=== PATIENT | male | born 1945 | race African-American/Black ===

== ENCOUNTER 2016-12-24 05:52 | Inpatient (IN) ==
[2016-12-17 11:03] LABS: Basophils % 0.3 % (0.0-0.8); Eosinophils # 0.2 10*3/uL (0.0-0.87); Eosinophils % 2.3 % (0.00-10.9); Hematocrit 37.6 VOL% (42.0-52.0); Hemoglobin 12.2 GM/DL (14.0-18.0); Immature Granulocytes % 0.1 %; Immature Granulocytes Absolute 0.01 #; Lymphocytes # 1.5 10*3/uL (1.4-4.0); Lymphocytes % 20.8 % (21.2-54.2); Mean Corpuscular HGB Conc 32.4 GM/DL (32-36); Mean Corpuscular Hemoglobin 23 PG (27-34); Mean Corpuscular Volume 70.5 FL (87-102); Mean Platelet Volume 9.8 FL (9.6-12.0); Monocytes # 0.6 10*3/uL (0.11-0.8); Monocytes % 8.8 % (1.7-12.7); Neutrophils # 4.8 10*3/uL (1.4-7.4); Neutrophils % 67.7 % (38.7-73.9); Platelet Count 233 T/CUMM (130-400); Red Blood Count 5.33 MC/CUMM (3.8-5.5); White Blood Count 7.1 T/CUMM (4-12)
--- NOTE | 2016-12-17 11:21 | EKG Report ---
Stationary ECG Study [facility] Test Date: 12/17/2016 11:23:10 AM Pat Name: ZOHAIB KENNEDY Department: Room: Gender: M Fall Internship: ANAHY MERCHANT : 1945 Requested by: Jonathan Merchant Order Number: [id number] Reading MD: ALEAH CANTU Intervals [place] Rate: 87 P: 73 CT: 184 QRS: 30 QRSD: 91 T: 42 QT: 365 QTc: 410 Interpretive Statements SINUS RHYTHM Electronically Signed On 12-17-16 11:42:36 CDT by ALEAH CANTU [email or web address]
[2016-12-17 11:34] LABS: Alanine Aminotransferase 32 U/L (16-61); Albumin 3.8 G/DL (3.4-5.0); Alkaline Phosphatase 70 U/L (45-117); Aspartate Amino Transferase 18 U/L (0-37); Bilirubin,Total < 0.39 MG/DL (0.2-1.0); Blood Urea Nitrogen 16 MG/DL (7-18); Calcium 9.9 MG/DL (8.5-10.1); Glucose 157 MG/DL (74-106); Osmolality,Calculated 278.7 MOS/KG (273-304); Potassium 4.4 MMOL/L (3.5-5.1); Sodium 138 MMOL/L (136-145); Total Protein 7.8 G/DL (6.4-8.3)
[2016-12-24] MEDS ORDERED: cefOXitin 1,000 MG in SODIUM CHLORIDE 0.9% 100 ML IV ONE (06:00)
[2016-12-24] MEDS ORDERED: ALVIMOPAN 12 MG CAPSULE ONE (06:20)
[2016-12-24] MEDS ORDERED: SODIUM CHLORIDE 0.9% 100 ML IV ONE (06:21)
[2016-12-24] MEDS: LACTATED RINGERS 1,000 ML IV SCH ×4 (06:23→22:44)
[2016-12-24] MEDS ORDERED: LIDOCAINE 1%/EPI INJ 20 ML VIAL ONE (06:29)
[2016-12-24] MEDS ORDERED: BUPIVACAINE MPF 0.25% /EPI 30 ML VIAL ONE (06:29)
[2016-12-24] MEDS ORDERED: ALVIMOPAN 12 MG CAPSULE PO ONE (06:42)
--- NOTE | 2016-12-24 06:57 | History and Physical Update ---
History and Physical Update - History and Physical H&P was reviewed, the patient examined and there: are no changes in the patients condition since last H&P was completed.
[2016-12-24] MEDS ORDERED: PROPOFOL 200 MG/20 ML VIAL IV ONE (07:08)
[2016-12-24] MEDS ORDERED: ROCURONIUM 100 MG/10 ML VIAL IV ONE (07:08)
[2016-12-24] MEDS ORDERED: LIDOCAINE 2% 5 ML VIAL ONE (07:08)
[2016-12-24] MEDS ORDERED: ONDANSETRON 4 MG/2 ML VIAL ONE (07:08)
[2016-12-24] MEDS ORDERED: NEOSTIGMINE 10 MG/10 ML VIAL ONE (07:08)
[2016-12-24] MEDS ORDERED: PHENYLEPHRINE 1 MG/10 ML SYRINGE IV ONE (07:08)
[2016-12-24] MEDS ORDERED: GLYCOPYRROLATE 0.4 MG/2 ML VIAL ONE (07:08)
[2016-12-24] MEDS ORDERED: PHENYLEPHRINE DRIP 20 MG/250 ML PREMIX IV ONE (07:40)
[2016-12-24] MEDS ORDERED: ONDANSETRON 4 MG/2 ML VIAL IV PRN ×2 (10:20→10:57)
[2016-12-24] MEDS ORDERED: ACETAMINOPHEN 325 MG TABLET PO PRN (10:20)
[2016-12-24 10:23] LABS: Apearance,Urine CLEAR (Clear); Bilirubin,Urine Negative (Negative); Blood, Urine Small mg/dL (Negative); Glucose,Urine (UA) >=500 mg/dL (Negative); Ketones,Urine Negative (Negative); Nitrite,Urine Negative (Negative); Protein,Urine Negative; RBC,Urine 3 /HPF (0-4); Urine Color Straw (Yellow); Urine Specific Gravity 1.007 (1.001-1.035); Urine Urobilinogen < 2.0 EU/DL (0.2-1.0); WBC,Urine <1 /HPF (0-6)
--- NOTE | 2016-12-24 10:31 | Operative Note ---
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 After general anesthesia was induced the abdomen was prepped and draped in usual sterile fashion. After procedural pause incision was made just below the umbilicus and dissection carried down through skin and soft tissue. The fascia grasped with Orlando's and elevated. Fascial incision was made in the abdominal cavity was entered bluntly. Finger sweep revealed no adhesions. Parr trocar placed under direct visualization. Pneumoperitoneum achieved. The camera inserted and bowel mesentery inspected found to be free of any violation. Next the patient was placed in slight Trendelenburg position and rotated to the left. 12 mm trocar placed in the right lower quadrant, 8 mm trocar placed left of the umbilicus and a 5 mm trocar placed in the left upper quadrant, all under visualization. The robotic arms were docked and I took control to consult. Small bowel was swept to the left lower quadrant exposing the right colon. The cecum was elevated and there was tenting at the right colic vessels. The mesentery in this region was dissected in the right colic artery was identified and dissected free from the surrounding tissue. It was stapled with a vascular load robotic stapler. Dissection was carried along the mesentery at the base and the duodenum was identified and preserved. No heat source was ever used near the duodenum. Division of the mesentery was continued to the transverse colon leaving the middle colic arteries intact. Transverse colon was then divided with the ROSSY stapling device with a blue load. Mesentery dissection was continued inferiorly down to the ileum at approximately 5-10 cm from the ileocecal junction. The ileum was divided i using a blue stapler. The remaining attachments laterally were divided and the specimen was completely freed and placed in the right upper quadrant. There was excellent hemostasis. Right ureter was unharmed. Next the ileum was brought up alongside the transverse colon and an enterotomy and colotomy were made. A side to side functional end-to-end anastomosis was constructed using the robotic stapler with a blue load. The defect was closed with a running 2-0 Prolene suture. Tisseel was applied to the anastomosis and closure. The anastomosis appeared patent tension-free and healthy and viable. Omentum was placed over the anastomosis. The robotic arms were undocked. The specimen was placed in an Endo Catch sac and delivered through the Parr trocar site. The remaining trochars were removed. Fascia at the Parr trocar site closed using #1 Prolene running suture. Wounds were thoroughly irrigated and suctioned. Incision closed with cynthia. Sterile dressings applied. Patient was extubated and taken recovery room in stable condition. All lap and needle counts correct at the end of the case. Anesthesia: SANA Surgeon / Physician: Jonathan Merchant Android Platform Developer: Mikael Abdul Estimated blood loss: other (Less than 25 cc) Specimens: other (Right colon) Condition: stable Disposition: PACU Results - Labs CBC & BMP: 12/17/16 10:56 12/17/16 10:56 Discharge Plan - Discharge Medications No Action Atorvastatin [Lipitor] 40 mg PO DAILY Glimepiride 4 mg PO BEDTIME Canagliflozin [Invokana] 100 mg PO DAILY Losartan Potassium 50 mg PO DAILY Multivitamin [Multivitamins] 1 each PO DAILY amLODIPine [Norvasc] 10 mg PO BEDTIME Sitagliptin Phos/Metformin HCl [Janumet 50-1,000 mg Tablet] 50 mg PO BID PARoxetine [Paxil] 10 mg PO DAILY Penicillin Vk Tab 500 mg PO DIRECTED - Follow Up or Referral - Forms/Instructions
[2016-12-24] MEDS ORDERED: HYDROmorphone 2 MG/1 ML VIAL IV PRN (10:57)
[2016-12-24] MEDS ORDERED: DESFLURANE 1 UNIT/15 MINUTE INH ONE (14:05)
[2016-12-24] MEDS ORDERED: ePHEDrine 50 MG/ML AMP ONE (14:06)
[2016-12-24] MEDS ORDERED: LACTATED RINGERS 1,000 ML IV ONE (14:06)
[2016-12-24] MEDS ORDERED: ACETAMINOPHEN 1,000 MG/100 ML VIAL IV ONE (14:06)
[2016-12-24] MEDS ORDERED: MIDAZOLAM 2 MG/2 ML VIAL ONE (14:06)
--- NOTE | 2016-12-24 14:26 | Operative Note ---
Date of procedure: 12/24/16 Procedure: This is a assistant administrator note for the robotic assisted laparoscopic right colectomy performed by Dr. Villa. I served as a bedside operating room assistant for the procedure. The right colon was removed with a high ligation of the ileocolic pedicle and medial to lateral dissection. The anastomosis was performed with a [id number] stapled technique and appeared patent and well perfused. There is adequate gross margin after the specimen was removed. Surgeon / Physician: Mikael Abdul Results - Labs CBC & BMP: 12/17/16 10:56 12/17/16 10:56 Discharge Plan - Discharge Medications No Action Atorvastatin [Lipitor] 40 mg PO DAILY Glimepiride 4 mg PO BEDTIME Canagliflozin [Invokana] 100 mg PO DAILY Losartan Potassium 50 mg PO DAILY Multivitamin [Multivitamins] 1 each PO DAILY amLODIPine [Norvasc] 10 mg PO BEDTIME Sitagliptin Phos/Metformin HCl [Janumet 50-1,000 mg Tablet] 50 mg PO BID PARoxetine [Paxil] 10 mg PO DAILY - Follow Up or Referral - Forms/Instructions
--- NOTE | 2016-12-24 15:57 | Anesthesia Post-Op ---
Anesthesia Post OP - Post Ansesthetic Evaluation Patient seen in post op: Yes Resp: within normal limits CV: within normal limits Mental: within normal limits Temp: within normal limits [id number]: within normal limits Nausea and Vomiting: within normal limits Pain: within normal limits
[2016-12-24] MEDS: MORPHINE 2 MG/1 ML SYRINGE IV PRN ×2 (16:06→21:52)
[2016-12-25] MEDS: LACTATED RINGERS 1,000 ML IV SCH ×3 (01:29→12:35)
[2016-12-25 06:35] LABS: Basophils % 0.2 % (0.0-0.8); Eosinophils % 0.2 % (0.00-10.9); Hematocrit 33.9 VOL% (42.0-52.0); Hemoglobin 10.9 GM/DL (14.0-18.0); Immature Granulocytes % 0.4 %; Immature Granulocytes Absolute 0.05 #; Lymphocytes # 1.4 10*3/uL (1.4-4.0); Lymphocytes % 11.2 % (21.2-54.2); Mean Corpuscular HGB Conc 32.2 GM/DL (32-36); Mean Corpuscular Hemoglobin 23 PG (27-34); Mean Corpuscular Volume 69.9 FL (87-102); Mean Platelet Volume 10.3 FL (9.6-12.0); Monocytes # 1.5 10*3/uL (0.11-0.8); Monocytes % 12.2 % (1.7-12.7); Neutrophils # 9.6 10*3/uL (1.4-7.4); Neutrophils % 75.8 % (38.7-73.9); Platelet Count 219 T/CUMM (130-400); Red Blood Count 4.85 MC/CUMM (3.8-5.5); Red Cell Distribution Width 16.7 % (9.3-17.3); White Blood Count 12.7 T/CUMM (4-12)
[2016-12-25 07:06] LABS: Calcium 9.6 MG/DL (8.5-10.1); Osmolality,Calculated 277.5 MOS/KG (273-304); Potassium 4.3 MMOL/L (3.5-5.1)
[2016-12-25] MEDS: PANTOPRAZOLE 40 MG TABLET PO SCH (09:17)
--- NOTE | 2016-12-25 11:06 | Event Note ---
General Surgery Progress Note Chief complaint This patient is a 71-year-old man who underwent robotic assisted laparoscopic right colectomy by Dr. Villa for colon cancer on 12/24/2016 Interval history Patient feels well today. Pain is well controlled. No nausea or vomiting. He had a bowel movement yesterday and is passing gas. He feels thirsty but not necessarily hungry. He still has a Hoffman catheter and has not gotten out of bed yet. Physical exam The patient is afebrile with normal vital signs Chest is clear Heart is regular Abdomen is soft and appropriately tender with clean dressings. Nondistended. Normal bowel sounds. Labs Reviewed, stable Imaging None new Assessment and plan Begin diet as tolerated Discontinue Hoffman catheter Start DVT chemoprophylaxis with Lovenox Discontinue antibiotics Change to maintenance fluids Likely discharge home tomorrow Repeat labs tomorrow
[2016-12-25] MEDS: DEXT 5% NACL 0.45% KCL 20 MEQ 20 MEQ/1,000 ML BAG IV SCH ×3 (12:11→21:34)
[2016-12-25] MEDS: ENOXAPARIN 40 MG/0.4 ML SYRINGE SUBCUT SCH (12:11)
[2016-12-26 05:42] LABS: Basophils % 0.3 % (0.0-0.8); Eosinophils # 0.1 10*3/uL (0.0-0.87); Eosinophils % 1.4 % (0.00-10.9); Hematocrit 35.9 VOL% (42.0-52.0); Hemoglobin 11.3 GM/DL (14.0-18.0); Immature Granulocytes % 0.4 %; Immature Granulocytes Absolute 0.04 #; Lymphocytes # 1.2 10*3/uL (1.4-4.0); Lymphocytes % 12.2 % (21.2-54.2); Mean Corpuscular HGB Conc 31.5 GM/DL (32-36); Mean Corpuscular Hemoglobin 22 PG (27-34); Mean Corpuscular Volume 70.4 FL (87-102); Mean Platelet Volume 10.7 FL (9.6-12.0); Monocytes # 1.3 10*3/uL (0.11-0.8); Monocytes % 12.8 % (1.7-12.7); Neutrophils # 7.1 10*3/uL (1.4-7.4); Neutrophils % 72.9 % (38.7-73.9); Platelet Count 205 T/CUMM (130-400); Red Cell Distribution Width 16.8 % (9.3-17.3); White Blood Count 9.8 T/CUMM (4-12)
[2016-12-26] MEDS: DEXT 5% NACL 0.45% KCL 20 MEQ 20 MEQ/1,000 ML BAG IV SCH ×2 (05:47→10:19)
[2016-12-26 06:11] LABS: Calcium 8.9 MG/DL (8.5-10.1); Magnesium 1.6 MG/DL (1.8-2.4); Osmolality,Calculated 277.7 MOS/KG (273-304); Potassium 4.2 MMOL/L (3.5-5.1)
[2016-12-26] MEDS ORDERED: MAGNESIUM SULF RIDER 2 GM in PREMIX 1 EACH IV ONE (07:06)
--- NOTE | 2016-12-26 09:15 | Discharge Summary ---
Hospital Course - Hospital Course Hospital Course: This patient was admitted following robotic assisted laparoscopic right colectomy for cecal cancer. He did very well postoperatively and was having bowel function immediately postoperatively and tolerated his diet. His pain is well controlled. He had some low-grade temps at nighttime likely due to atelectasis but his abdominal pain was resolved by the time of discharge he was having no nausea or vomiting tolerating a regular diet and having bowel movements. He was afebrile overnight and on the day of his discharge and had no evidence of complications and was discharged home with follow-up with Dr. Merchant in about 1 week for clip removal. Discharge Plan - Discharge Data Disposition: Disch To Home/Self Care Condition at Discharge: Stable Discharge Diet: advance to your usual diet Activity: no lifting Hygiene: may shower Weight Bearing at Discharge: weight bear as tolerated Driving: other (Do not drive or operate heavy machinery for at least 24 hours and after you are off of narcotic pain medications.) Contact your physician if you experience:: fever over 101, Difficulty voiding, Redness or swelling, Nausea/Vomiting, Shortness of breath, Bleeding, pain uncontrolled by pain medications Wound / Dressing Care Instructions: It is okay to shower. Do not submerge your incisions underwater. - Discharge Medications New HYDROcodone/ACETAMIN 7.5-325 [[place] 7.5-325] 1 tablet PO Q4H PRN #30 tablet PRN Reason: Pain Moderate (4-7) Continue Atorvastatin [Lipitor] 40 mg PO DAILY Glimepiride 4 mg PO BEDTIME Canagliflozin [Invokana] 100 mg PO DAILY Losartan Potassium 50 mg PO DAILY Multivitamin [Multivitamins] 1 each PO DAILY amLODIPine [Norvasc] 10 mg PO BEDTIME Sitagliptin Phos/Metformin HCl [Janumet 50-1,000 mg Tablet] 50 mg PO BID PARoxetine [Paxil] 10 mg PO DAILY - Follow Up or Referral Follow Up: Jonathan Merchant MD [Physician] - 1 Week - Forms/Instructions Exam - Constitutional Vitals: Period Temp Pulse Resp BP Sys/Arndt Pulse Ox Last 24 Hr 97.1 F-101.0 F 86-97 18-20 137-164/66-80 90-94 General appearance: no acute distress, over weight - Head Head exam: Present: normal inspection, normocephalic - Eye Eye exam: Present: EOMI Pupils: Present: PINO - ENT ENT exam: Present: normal exam - Neck Neck exam: Present: normal inspection - Respiratory Respiratory exam: Present: clear to auscultation bilaterally. Absent: accessory muscle use, chest wall tenderness - Cardiovascular Cardiovascular exam: Present: regular rate and rhythm. Absent: systolic murmur , tachycardia - GI/Abdominal GI/Abdominal exam: Present: normal bowel sounds, tenderness (Appropriate postoperative tenderness), soft, other (Incisions are clean and dry with cynthia intact and no drainage or infection). Absent: rebound - Extremities Exam Extremities exam: Present: normal inspection, normal capillary refill - Back Exam Back exam: Present: normal inspection - Neurological Exam Neurological exam: Present: alert, oriented X3 - Psychiatric Psychiatric exam: Present: normal affect, normal mood - Skin Skin exam: Present: normal color, warm Discharge Results Labs on day of discharge: Labs from last 24 hours 12/26/16 12/26/16 04:39 04:39 WBC 9.8 RBC 5.10 Hgb 11.3 L Hct 35.9 L MCV 70.4 L MCH 22 L MCHC 31.5 L RDW 16.8 Plt Count 205 MPV 10.7 Neut % (Auto) 72.9 Lymph % (Auto) 12.2 L Riley % (Auto) 12.8 H Eos % (Auto) 1.4 Baso % (Auto) 0.3 Neut # (Auto) 7.1 Lymph # (Auto) 1.2 L Riley # (Auto) 1.3 H Eos # (Auto) 0.1 Baso # (Auto) 0.0 Immature Gran % 0.4 Nucleated RBC % 0.0 Immature Gran # 0.04 Nucleated RBCs # 0.00 Sodium 138 Potassium 4.2 Chloride 101 Carbon Dioxide 27 Anion Gap 14.2 BUN 10 Creatinine 1.10 GFR Calculation 103 BUN/Creatinine Ratio 9.00 Glucose 179 H Calculated Osmolality 277.7 Calcium 8.9 Magnesium 1.6 L DS: Provider Date of admission: 12/24/16 10:20 Primary care physician: Ananth Ga MD Attending physician on admission: Jonathan Merchant MD Consults: 12/24/16 13:45 Consult to Pastoral Services [CONS] Routine Comment: Pastoral Screen: Request Supervisor Compounding And Finishing Visit Pastoral Screen Source of Request: Patient Discharging clinician: Mikael Abdul MD Expected date of discharge: 12/26/16
[2016-12-26] MEDS: PANTOPRAZOLE 40 MG TABLET PO SCH (10:15)
[2016-12-26 11:44] VITALS: BP 149/76
[2016-12-26] MEDS: ENOXAPARIN 40 MG/0.4 ML SYRINGE SUBCUT SCH (12:19)
--- NOTE | 2016-12-29 13:08 | Pathology Report from [facility] ---
[facility] [place] : [id number] PATIENT NAME : Doc Kennedy ORDERING DR : Jonathan Merchant MD CLINICAL HX: Colon cancer POST-OP DX: Same SPECIMEN INFO: Right colon GROSS DESCRIPTION: The specimen is received in formalin labeled with the patients name DOC KENNEDY and is a portion of colon to include the cecum measuring 34.0 x 4.1 cm. The terminal ileum measures 5.0 x 2.0 cm. An appendix is present which measures 8.0 x 0.7 cm. Opening the colon reveals an ulcerating tumor mass measuring 3.2 x 2.2 cm which abuts the ileocecal valve and is situated 9.3 cm from the proximal margin and 29.5 cm from the distal margin. Grossly the tumor extends beyond the bowel wall into the adjacent mesentery, coming to within 6.5 cm of the mesenteric margin. Lymph nodes will be submitted following fixation. Sections: A proximal margin, B distal margin , C mesenteric margin, D-F tumor, G appendix. Cassettes H and I lymph nodes added Tuesday12/26/2016. DIAGNOSIS FOR DOC KENNEDY: RIGHT COLON & TERMINAL ILEUM, PARTIAL ILEOCOLECTOMY (Intact, 39.0 x 4.1 cm): TYPE: Invasive adenocarcinoma. TUMOR SITE: Cecum. TUMOR SIZE: 3.2 x 2.2 cm. MACROSCOPIC TUMOR PERFORATION: Absent. HISTOLOGIC GRADE: Moderately differentiated. MICROSCOPIC TUMOR EXTENSION: Tumor invades through the muscularis propria into pericolic fat. MARGINS, PROXIMAL: Uninvolved by carcinoma, distance = 9.3 cm. DISTAL: Uninvolved by carcinoma, distance = 29.5 cm. MESENTERIC: Uninvolved by carcinoma, distance = 6.5 cm. TREATMENT EFFECT: No known prior treatment. LYMPH VASCULAR INVASION: Present (slide I). PERINEURAL INVASION: Absent. TUMOR DEPOSITS: Present, number of deposits = 3. LYMPH NODES: NUMBER EXAMINED: 15; NUMBER INVOLVED: 0. ADDITIONAL FINDINGS : None AJCC PATHOLOGIC STAGE IIA ([id number]) COLLECTED DATE: 12/24/2016 [facility] REPORT DATE: 12/27/2016 ELECTRONICALLY SIGNED BY: Selene Palacios M.D. 12/27/2016 - 13:35:29 [facility]
== END 2016-12-26 13:30 | disposition home or self-care (01) | DRG 331 ==
LOC: N.OR 05:52 → N.SDSINP 05:52 → N.3E 10:20
PROVIDERS: ADMIT Surgery; ATTEND Surgery

== ENCOUNTER 2019-08-16 18:30 | Inpatient (IN) ==
[2019-08-16 20:13] LABS: Basophils % 0.3 % (0.0-0.8); Eosinophils # 0.2 10*3/uL (0.0-0.87); Eosinophils % 2.2 % (0.00-10.9); Hematocrit 24.7 VOL% (42.0-52.0); Hemoglobin 7.6 GM/DL (14.0-18.0); Immature Granulocytes % 0.3 %; Immature Granulocytes Absolute 0.03 #; Lymphocytes # 1.9 10*3/uL (1.4-4.0); Lymphocytes % 19.3 % (21.2-54.2); Mean Corpuscular HGB Conc 30.8 GM/DL (32-36); Mean Corpuscular Volume 77.2 FL (87-102); Mean Platelet Volume 9.9 FL (9.6-12.0); Monocytes % 8.2 % (1.7-12.7); NRBC # 0.09 10*3/uL; Neutrophils % 69.7 % (38.7-73.9); Platelet Count 190 T/CUMM (130-400); Red Cell Distribution Width 15.8 % (9.3-17.3)
[2019-08-16 20:25] LABS: Calcium 10.1 MG/DL (8.5-10.1); Osmolality,Calculated 274.2 MOS/KG (273-304)
[2019-08-16] MEDS ORDERED: ONDANSETRON 4 MG/2 ML VIAL IV STA (20:41)
[2019-08-16] MEDS ORDERED: SODIUM CHLORIDE 0.9% 500 ML IV STA (20:41)
[2019-08-16] MEDS ORDERED: PANTOPRAZOLE 40 MG VIAL IV STA (20:41)
[2019-08-16 20:48] LABS: INR 0.9; PT Patient Result 10.2 SECS (9.6-12.2)
[2019-08-16] MEDS ORDERED: DEXTROSE 50% 25 GM/50 ML SYRINGE IV PRN (22:48)
[2019-08-16] MEDS ORDERED: GLUCAGON 1 MG VIAL IM PRN (22:48)
[2019-08-16] MEDS ORDERED: ONDANSETRON 4 MG/2 ML VIAL IV PRN (22:48)
[2019-08-16] MEDS ORDERED: HYDROmorphone 2 MG/1 ML VIAL IV PRN (22:48)
[2019-08-16] MEDS ORDERED: ACETAMINOPHEN 325 MG TABLET PO PRN (22:48)
[2019-08-16 22:50] LABS: Alanine Aminotransferase 22 U/L (16-61); Albumin 3.4 G/DL (3.4-5.0); Alkaline Phosphatase 51 U/L (45-117); Aspartate Amino Transferase 21 U/L (0-37); Bilirubin,Total < 0.39 MG/DL (0.2-1.0); Blood Urea Nitrogen 27 MG/DL (7-18); Calcium 9.7 MG/DL (8.5-10.1); Estimated Glom Filtration Rate 79 ML/MIN; Glucose 91 MG/DL (74-106); Osmolality,Calculated 274.1 MOS/KG (273-304)
[2019-08-16] MEDS: SODIUM CHLORIDE 0.9% 1,000 ML IV SCH (22:50)
[2019-08-16] MEDS ORDERED: DEXTROSE 10% 250 ML BAG IV PRN (22:54)
[2019-08-17] MEDS: INSULIN REGULAR 100 UNIT/ML SUBCUT SCH ×4 (00:33→18:12)
[2019-08-17 05:38] LABS: Basophils % 0.4 % (0.0-0.8); Eosinophils # 0.3 10*3/uL (0.0-0.87); Eosinophils % 3.7 % (0.00-10.9); Hematocrit 21.1 VOL% (42.0-52.0); Hemoglobin 6.5 GM/DL (14.0-18.0); Immature Granulocytes % 0.4 %; Immature Granulocytes Absolute 0.03 #; Lymphocytes # 1.6 10*3/uL (1.4-4.0); Lymphocytes % 19.7 % (21.2-54.2); Mean Corpuscular HGB Conc 30.8 GM/DL (32-36); Mean Corpuscular Volume 76.4 FL (87-102); Mean Platelet Volume 10.8 FL (9.6-12.0); Monocytes % 11.1 % (1.7-12.7); NRBC # 0.04 10*3/uL; Neutrophils % 64.7 % (38.7-73.9); Platelet Count 174 T/CUMM (130-400); Red Blood Count 2.76 MC/CUMM (3.8-5.5); Red Cell Distribution Width 15.9 % (9.3-17.3); White Blood Count 7.9 T/CUMM (4-12)
[2019-08-17 05:49] LABS: Albumin 3.2 G/DL (3.4-5.0); Bilirubin,Total 0.6 MG/DL (0.2-1.0); Calcium 9.5 MG/DL (8.5-10.1); Osmolality,Calculated 277.8 MOS/KG (273-304); Risk Ratio 3.03; Total Protein 6.6 G/DL (6.4-8.3); VLDL CHOLESTEROL 21.8 MG/DL
[2019-08-17] MEDS ORDERED: SODIUM CHLORIDE 0.9% 1,000 ML IV PRN (07:38)
[2019-08-17] MEDS ORDERED: FUROSEMIDE 40 MG/4 ML VIAL IV ONE ×2 (07:39→15:00)
[2019-08-17 07:54] LABS: % Iron Saturation 18.4 % (18-50)
[2019-08-17] MEDS ORDERED: Canagliflozin [Invokana] 300 MG PO SCH (08:00)
[2019-08-17] MEDS: PANTOPRAZOLE 40 MG VIAL IV SCH (09:56)
[2019-08-17] MEDS: metFORMIN 500 MG TABLET PO SCH ×2 (09:56→18:12)
[2019-08-17] MEDS: LOSARTAN 50 MG TABLET PO SCH (09:56)
[2019-08-17] MEDS: sitaGLIPtin 25 MG TABLET PO SCH ×2 (09:56→18:12)
[2019-08-17] MEDS: ATORVASTATIN 40 MG TABLET PO SCH (09:56)
[2019-08-17] MEDS: DOCUSATE SODIUM 100 MG CAPSULE PO SCH ×2 (09:56→20:38)
[2019-08-17] MEDS: GLIMEPIRIDE 4 MG TABLET PO SCH ×2 (09:56→18:12)
[2019-08-17] MEDS: ASPIRIN 325 MG TABLET PO SCH ×2 (09:56→20:38)
[2019-08-17] MEDS: SODIUM CHLORIDE 0.9% 1,000 ML IV SCH (18:12)
[2019-08-17] MEDS: amLODIPine 10 MG TABLET PO SCH (20:38)
[2019-08-17] MEDS: PARoxetine 10 MG TABLET PO SCH (20:38)
[2019-08-18] MEDS: INSULIN REGULAR 100 UNIT/ML SUBCUT SCH ×4 (00:02→17:46)
[2019-08-18 04:51] LABS: Basophils % 0.2 % (0.0-0.8); Eosinophils # 0.1 10*3/uL (0.0-0.87); Eosinophils % 1.6 % (0.00-10.9); Hemoglobin 8.7 GM/DL (14.0-18.0); Immature Granulocytes % 0.3 %; Immature Granulocytes Absolute 0.03 #; Lymphocytes % 10.7 % (21.2-54.2); Mean Corpuscular HGB Conc 32.2 GM/DL (32-36); Mean Corpuscular Volume 75.8 FL (87-102); Mean Platelet Volume 10.2 FL (9.6-12.0); NRBC # 0.07 10*3/uL; Neutrophils % 78.2 % (38.7-73.9); Platelet Count 165 T/CUMM (130-400); Red Blood Count 3.56 MC/CUMM (3.8-5.5); Red Cell Distribution Width 15.7 % (9.3-17.3)
[2019-08-18 05:11] LABS: Calcium 9.3 MG/DL (8.5-10.1)
[2019-08-18] MEDS ORDERED: MAGNESIUM SULF RIDER 4 GM in PREMIX 1 EACH IV PRN (08:48)
[2019-08-18] MEDS ORDERED: MAGNESIUM SULF RIDER 2 GM in PREMIX 1 EACH IV PRN (08:48)
[2019-08-18] MEDS ORDERED: SODIUM CHLORIDE 0.9% 1,000 ML IV PRN ×2 (08:53→23:11)
[2019-08-18] MEDS: GLIMEPIRIDE 4 MG TABLET PO SCH (09:01)
[2019-08-18] MEDS: metFORMIN 500 MG TABLET PO SCH (09:01)
[2019-08-18] MEDS: SODIUM CHLORIDE 0.9% 1,000 ML IV SCH ×2 (09:05→16:16)
[2019-08-18] MEDS: LOSARTAN 50 MG TABLET PO SCH (09:06)
[2019-08-18] MEDS: ATORVASTATIN 40 MG TABLET PO SCH (09:06)
[2019-08-18] MEDS: ASPIRIN 325 MG TABLET PO SCH ×2 (09:06→21:45)
[2019-08-18] MEDS: DOCUSATE SODIUM 100 MG CAPSULE PO SCH ×2 (09:06→20:51)
[2019-08-18] MEDS: sitaGLIPtin 25 MG TABLET PO SCH ×2 (09:07→17:45)
[2019-08-18] MEDS: PANTOPRAZOLE 40 MG VIAL IV SCH (09:08)
[2019-08-18 09:27] LABS: Hematocrit 26.2 VOL% (42.0-52.0); Hemoglobin 8.6 GM/DL (14.0-18.0)
[2019-08-18] MEDS: PARoxetine 10 MG TABLET PO SCH (20:51)
[2019-08-18] MEDS: amLODIPine 10 MG TABLET PO SCH (20:51)
[2019-08-18 22:40] LABS: Hematocrit 24.7 VOL% (42.0-52.0); Hemoglobin 7.7 GM/DL (14.0-18.0)
[2019-08-19] MEDS: INSULIN REGULAR 100 UNIT/ML SUBCUT SCH ×3 (08:57→15:59)
[2019-08-19] MEDS: SODIUM CHLORIDE 0.9% 1,000 ML IV SCH ×2 (08:57→16:54)
[2019-08-19 09:12] LABS: Hematocrit 31.1 VOL% (42.0-52.0); Hemoglobin 9.8 GM/DL (14.0-18.0)
[2019-08-19 09:13] LABS: Basophils % 0.5 % (0.0-0.8); Eosinophils # 0.3 10*3/uL (0.0-0.87); Eosinophils % 5.7 % (0.00-10.9); Hematocrit 29.9 VOL% (42.0-52.0); Hemoglobin 9.6 GM/DL (14.0-18.0); Immature Granulocytes % 0.2 %; Immature Granulocytes Absolute 0.01 #; Lymphocytes % 16.8 % (21.2-54.2); Mean Corpuscular HGB Conc 32.1 GM/DL (32-36); Mean Corpuscular Volume 78.7 FL (87-102); NRBC # 0.06 10*3/uL; Neutrophils % 60.8 % (38.7-73.9); Platelet Count 170 T/CUMM (130-400); Red Cell Distribution Width 17.4 % (9.3-17.3); White Blood Count 5.8 T/CUMM (4-12)
[2019-08-19] MEDS: sitaGLIPtin 25 MG TABLET PO SCH ×2 (09:15→16:53)
[2019-08-19] MEDS: ATORVASTATIN 40 MG TABLET PO SCH (09:16)
[2019-08-19] MEDS: ASPIRIN 325 MG TABLET PO SCH ×2 (09:16→20:40)
[2019-08-19] MEDS: PANTOPRAZOLE 40 MG VIAL IV SCH (09:16)
[2019-08-19] MEDS: DOCUSATE SODIUM 100 MG CAPSULE PO SCH ×2 (09:16→20:40)
[2019-08-19] MEDS: LOSARTAN 50 MG TABLET PO SCH (09:16)
[2019-08-19 09:32] LABS: Calcium 8.8 MG/DL (8.5-10.1); Osmolality,Calculated 277.5 MOS/KG (273-304)
[2019-08-19 10:09] LABS: Band Neutrophils 1 % (0-10); Eosinophils 1 % (0-10); Lymphocytes 12 % (20-55); Nucleated Red Blood Cells 0 (0-5); Segmented Neutrophils 78 % (50-85); Total Cells Counted 100
[2019-08-19 10:10] LABS: Hypochromasia 3+; Microcytosis 2+; Ovalocytes Few; Platelet Estimate Adequate; Polychromasia Slight; Schistocytes Slight
[2019-08-19] MEDS: PARoxetine 10 MG TABLET PO SCH (20:40)
[2019-08-19] MEDS: amLODIPine 10 MG TABLET PO SCH (20:40)
[2019-08-19 22:45] LABS: Hematocrit 29.7 VOL% (42.0-52.0); Hemoglobin 9.4 GM/DL (14.0-18.0)
[2019-08-20 04:25] LABS: Basophils % 0.5 % (0.0-0.8); Eosinophils # 0.4 10*3/uL (0.0-0.87); Eosinophils % 7.4 % (0.00-10.9); Hematocrit 30.7 VOL% (42.0-52.0); Hemoglobin 10.1 GM/DL (14.0-18.0); Immature Granulocytes % 0.5 %; Immature Granulocytes Absolute 0.03 #; Lymphocytes # 1.3 10*3/uL (1.4-4.0); Lymphocytes % 22.4 % (21.2-54.2); Mean Corpuscular HGB Conc 32.9 GM/DL (32-36); Mean Corpuscular Volume 78.5 FL (87-102); Monocytes % 16.2 % (1.7-12.7); NRBC # 0.05 10*3/uL; Platelet Count 183 T/CUMM (130-400); Red Blood Count 3.91 MC/CUMM (3.8-5.5); Red Cell Distribution Width 17.6 % (9.3-17.3)
[2019-08-20 04:40] LABS: Calcium 8.7 MG/DL (8.5-10.1); Osmolality,Calculated 278.5 MOS/KG (273-304)
[2019-08-20 04:47] LABS: Eosinophils 10 % (0-10); Hypochromasia 1+; Lymphocytes 19 % (20-55); Nucleated Red Blood Cells 4 (0-5); Segmented Neutrophils 57 % (50-85); Total Cells Counted 100
[2019-08-20 04:48] LABS: Acanthocytes Few; Anisocytosis 1+; Microcytosis 1+; Ovalocytes Slight; Platelet Estimate Adequate
[2019-08-20 04:49] LABS: Atypical Lymphocytes Few
[2019-08-20] MEDS ORDERED: propofoL 200 MG/20 ML VIAL IV ONE (09:00)
[2019-08-20] MEDS ORDERED: LIDOCAINE 2% 5 ML VIAL ONE (09:00)
[2019-08-20] MEDS: INSULIN REGULAR 100 UNIT/ML SUBCUT SCH ×3 (09:44→16:42)
[2019-08-20] MEDS: SODIUM CHLORIDE 0.9% 1,000 ML IV SCH ×3 (11:18→20:21)
[2019-08-20] MEDS: sitaGLIPtin 25 MG TABLET PO SCH ×2 (14:08→16:43)
[2019-08-20] MEDS: LOSARTAN 50 MG TABLET PO SCH (14:09)
[2019-08-20] MEDS: ATORVASTATIN 40 MG TABLET PO SCH (14:09)
[2019-08-20] MEDS: ASPIRIN 325 MG TABLET PO SCH ×2 (14:09→20:20)
[2019-08-20] MEDS: DOCUSATE SODIUM 100 MG CAPSULE PO SCH ×2 (14:09→20:20)
[2019-08-20] MEDS: PANTOPRAZOLE 40 MG VIAL IV SCH (14:09)
[2019-08-20] MEDS: PARoxetine 10 MG TABLET PO SCH (20:20)
[2019-08-20] MEDS: amLODIPine 10 MG TABLET PO SCH (20:20)
[2019-08-21 04:16] LABS: Basophils % 0.3 % (0.0-0.8); Eosinophils # 0.6 10*3/uL (0.0-0.87); Eosinophils % 9.6 % (0.00-10.9); Hematocrit 32.6 VOL% (42.0-52.0); Hemoglobin 10.1 GM/DL (14.0-18.0); Immature Granulocytes % 0.3 %; Immature Granulocytes Absolute 0.02 #; Lymphocytes # 1.3 10*3/uL (1.4-4.0); Lymphocytes % 20.5 % (21.2-54.2); Mean Corpuscular Volume 80.3 FL (87-102); Mean Platelet Volume 9.6 FL (9.6-12.0); Monocytes % 15.2 % (1.7-12.7); NRBC # 0.04 10*3/uL; Neutrophils % 54.1 % (38.7-73.9); Platelet Count 200 T/CUMM (130-400); Red Blood Count 4.06 MC/CUMM (3.8-5.5); Red Cell Distribution Width 17.6 % (9.3-17.3); White Blood Count 6.3 T/CUMM (4-12)
[2019-08-21 04:33] LABS: Bilirubin,Total 0.4 MG/DL (0.2-1.0); Calcium 8.7 MG/DL (8.5-10.1); Osmolality,Calculated 277.5 MOS/KG (273-304); Total Protein 6.5 G/DL (6.4-8.3)
[2019-08-21] MEDS: INSULIN REGULAR 100 UNIT/ML SUBCUT SCH (07:54)
[2019-08-21 07:58] VITALS: BP 134/80
[2019-08-21] MEDS: ASPIRIN 325 MG TABLET PO SCH (08:32)
[2019-08-21] MEDS: PANTOPRAZOLE 40 MG VIAL IV SCH (08:32)
[2019-08-21] MEDS: sitaGLIPtin 25 MG TABLET PO SCH (08:33)
[2019-08-21] MEDS: DOCUSATE SODIUM 100 MG CAPSULE PO SCH (08:33)
[2019-08-21] MEDS: LOSARTAN 50 MG TABLET PO SCH (08:33)
[2019-08-21] MEDS: ATORVASTATIN 40 MG TABLET PO SCH (08:33)
[2019-08-21] MEDS ORDERED: HEPARIN LOCK FLUSH 500 UNIT/5 ML SYRINGE IV ONE (08:56)
[2019-08-21] MEDS ORDERED: LORATADINE 10 MG TABLET PO SCH (09:00)
== END 2019-08-21 10:40 | disposition home or self-care (01) | DRG 378 ==
LOC: N.ED 18:30 → N.EDINP 21:27 → N.4E 21:47
PROVIDERS: ADMIT Internal Medicine; ATTEND Internal Medicine

== ENCOUNTER 2021-12-04 14:14 | Observation (INO) ==
[2021-12-04] MEDS ORDERED: SODIUM CHLORIDE 0.9% 1,000 ML IV STA (15:04)
[2021-12-04 15:16] LABS: Basophils % 0.2 % (0.0-0.8); Eosinophils % 0.9 % (0.00-10.9); Hematocrit 30.5 VOL% (42.0-52.0); Hemoglobin 10.1 GM/DL (14.0-18.0); Immature Granulocytes % 0.7 %; Immature Granulocytes Absolute 0.03 #; Lymphocytes # 0.5 10*3/uL (1.4-4.0); Lymphocytes % 11.6 % (21.2-54.2); Mean Corpuscular HGB Conc 33.1 GM/DL (32-36); Mean Corpuscular Volume 75.5 FL (87-102); Mean Platelet Volume 10.1 FL (9.6-12.0); Monocytes # 1.1 10*3/uL (0.11-0.8); Monocytes % 24.4 % (1.7-12.7); NRBC # 0.02 10*3/uL; Neutrophils % 62.2 % (38.7-73.9); Platelet Count 246 T/CUMM (130-400); Red Blood Count 4.04 MC/CUMM (3.8-5.5); Red Cell Distribution Width 16.4 % (9.3-17.3); White Blood Count 4.4 T/CUMM (4-12)
[2021-12-04 15:49] LABS: Band Neutrophils 5 % (0-10); Lymphocytes 9 % (20-55)
[2021-12-04 15:50] LABS: Dohle Bodies Slight; Toxic Granulation 1+
[2021-12-04 15:51] LABS: Ovalocytes Slight; Polychromasia Slight
[2021-12-04 15:53] LABS: Burr Cells Few; Platelet Estimate Normal
[2021-12-04 15:55] LABS: Acanthocytes Few; Total Cells Counted 100
[2021-12-04 16:01] LABS: Albumin 2.7 G/DL (3.4-5.0); Bilirubin,Total 0.8 MG/DL (0.20-1.00); Osmolality,Calculated 276.2 MOS/KG (273-304); Potassium 3.7 MMOL/L (3.5-5.1); Total Protein 6.7 G/DL (6.4-8.2)
[2021-12-04 16:45] LABS: Amorphous Crystals,Urine Occasional /HPF (Few); Hyaline Casts,Urine 1 /LPF (0-3); RBC,Urine 4 /HPF (0-4)
[2021-12-04 16:53] LABS: Bilirubin,Urine Negative (Negative); Blood, Urine Negative (Negative); Glucose,Urine (UA) >=1000 mg/dL (Negative); Ketones,Urine 15 mg/dL (Negative); Nitrite,Urine Negative (Negative); Protein,Urine 100 mg/dL (Negative); Urine Appearance Clear (Clear); Urine Color Yellow (Yellow)
[2021-12-04] MEDS ORDERED: ONDANSETRON 4 MG/2 ML VIAL IV PRN (18:37)
[2021-12-04] MEDS ORDERED: ACETAMINOPHEN 325 MG TABLET PO PRN (18:37)
[2021-12-04] MEDS ORDERED: GLUCAGON 1 MG VIAL IM PRN (18:37)
[2021-12-04] MEDS ORDERED: DEXTROSE 10% 250 ML BAG IV PRN (18:41)
[2021-12-04] MEDS: LACTATED RINGERS 1,000 ML IV SCH (21:53)
[2021-12-04] MEDS: DOCUSATE SODIUM 100 MG CAPSULE PO SCH (21:54)
[2021-12-05] MEDS: LACTATED RINGERS 1,000 ML IV SCH ×3 (05:52→18:17)
[2021-12-05 06:24] LABS: Basophils % 0.3 % (0.0-0.8); Eosinophils # 0.1 10*3/uL (0.0-0.87); Eosinophils % 1.5 % (0.00-10.9); Immature Granulocytes % 0.9 %; Immature Granulocytes Absolute 0.03 #; Lymphocytes # 0.5 10*3/uL (1.4-4.0); Lymphocytes % 15.1 % (21.2-54.2); Mean Corpuscular HGB Conc 33.3 GM/DL (32-36); Mean Corpuscular Volume 74.8 FL (87-102); Mean Platelet Volume 9.7 FL (9.6-12.0); Monocytes % 29.9 % (1.7-12.7); Neutrophils % 52.3 % (38.7-73.9); Platelet Count 233 T/CUMM (130-400); Red Blood Count 4.01 MC/CUMM (3.8-5.5); Red Cell Distribution Width 16.2 % (9.3-17.3); White Blood Count 3.4 T/CUMM (4-12)
[2021-12-05 06:46] LABS: Albumin 2.6 G/DL (3.4-5.0); Bilirubin,Total 0.9 MG/DL (0.20-1.00); Osmolality,Calculated 272.4 MOS/KG (273-304); Potassium 3.5 MMOL/L (3.5-5.1); Total Protein 6.8 G/DL (6.4-8.2)
[2021-12-05 07:33] LABS: Acanthocytes Few; Eosinophils 3 % (0-10); Lymphocytes 13 % (20-55); Platelet Estimate Normal; Poikilocytosis Slight; Total Cells Counted 100
[2021-12-05] MEDS: DOCUSATE SODIUM 100 MG CAPSULE PO SCH ×2 (08:21→21:46)
[2021-12-05] MEDS ORDERED: PANTOPRAZOLE 40 MG TABLET PO SCH (09:00)
[2021-12-05] MEDS ORDERED: traMADol 50 MG TABLET PO PRN (13:48)
[2021-12-05] MEDS ORDERED: hydrALAZINE 20 MG/1 ML VIAL IV PRN (13:54)
[2021-12-05] MEDS ORDERED: DEXTROSE 10% 250 ML BAG IV PRN (13:55)
[2021-12-05] MEDS: GABAPENTIN 100 MG CAPSULE PO SCH ×2 (14:03→21:47)
[2021-12-05] MEDS: INSULIN LISPRO 100 UNIT/ML SUBCUT SCH ×2 (17:23→21:28)
[2021-12-05] MEDS: PARoxetine 20 MG TABLET PO SCH (21:46)
[2021-12-05] MEDS: amLODIPine 10 MG TABLET PO SCH (21:46)
[2021-12-05] MEDS: PANTOPRAZOLE 40 MG TABLET PO SCH (21:47)
[2021-12-05] MEDS: TAMSULOSIN 0.4 MG CAPSULE PO SCH (21:47)
[2021-12-06] MEDS: LACTATED RINGERS 1,000 ML IV SCH ×2 (03:44→21:26)
[2021-12-06 05:23] LABS: Basophils % 0.2 % (0.0-0.8); Eosinophils # 0.1 10*3/uL (0.0-0.87); Eosinophils % 1.1 % (0.00-10.9); Hematocrit 29.5 VOL% (42.0-52.0); Hemoglobin 9.8 GM/DL (14.0-18.0); Immature Granulocytes % 0.5 %; Immature Granulocytes Absolute 0.02 #; Lymphocytes # 0.7 10*3/uL (1.4-4.0); Lymphocytes % 15.6 % (21.2-54.2); Mean Corpuscular HGB Conc 33.2 GM/DL (32-36); Mean Corpuscular Volume 75.1 FL (87-102); Monocytes # 1.2 10*3/uL (0.11-0.8); Monocytes % 27.3 % (1.7-12.7); Neutrophils % 55.3 % (38.7-73.9); Platelet Count 228 T/CUMM (130-400); Red Blood Count 3.93 MC/CUMM (3.8-5.5); Red Cell Distribution Width 16.1 % (9.3-17.3); White Blood Count 4.4 T/CUMM (4-12)
[2021-12-06 05:25] LABS: Calcium 9.8 MG/DL (8.5-10.1); Osmolality,Calculated 269.4 MOS/KG (273-304); Potassium 3.3 MMOL/L (3.5-5.1)
[2021-12-06 05:51] LABS: Eosinophils 1 % (0-10); Lymphocytes 13 % (20-55); Total Cells Counted 100
[2021-12-06 05:52] LABS: Acanthocytes 1+; Hypochromia 1+; Microcytosis 1+; Platelet Estimate Normal; Poikilocytosis Slight
[2021-12-06] MEDS: INSULIN LISPRO 100 UNIT/ML SUBCUT SCH ×4 (07:11→21:36)
[2021-12-06] MEDS: GABAPENTIN 100 MG CAPSULE PO SCH ×2 (09:28→21:11)
[2021-12-06] MEDS: DOCUSATE SODIUM 100 MG CAPSULE PO SCH ×2 (09:28→21:11)
[2021-12-06] MEDS: PANTOPRAZOLE 40 MG TABLET PO SCH ×2 (09:29→21:11)
[2021-12-06] MEDS: MEGESTROL 400 MG/10 ML UDCUP PO SCH (09:32)
[2021-12-06] MEDS ORDERED: POTASSIUM CHLORIDE 20 MEQ TABLET PO PRN (12:07)
[2021-12-06] MEDS ORDERED: MAGNESIUM SULF RIDER 4 GM/100 ML PREMIX IV PRN (12:07)
[2021-12-06] MEDS ORDERED: MAGNESIUM SULF RIDER 2 GM/50 ML PREMIX IV PRN (12:07)
[2021-12-06] MEDS: POTASSIUM CHLORIDE RIDER 10 MEQ/100 ML PREMIX IV PRN ×4 (15:41→21:36)
[2021-12-06] MEDS: PARoxetine 20 MG TABLET PO SCH (21:10)
[2021-12-06] MEDS: TAMSULOSIN 0.4 MG CAPSULE PO SCH (21:11)
[2021-12-06] MEDS: amLODIPine 10 MG TABLET PO SCH (21:11)
[2021-12-07 04:52] LABS: Basophils % 0.2 % (0.0-0.8); Eosinophils # 0.1 10*3/uL (0.0-0.87); Eosinophils % 1.4 % (0.00-10.9); Hematocrit 30.9 VOL% (42.0-52.0); Hemoglobin 10.2 GM/DL (14.0-18.0); Immature Granulocytes % 0.9 %; Immature Granulocytes Absolute 0.05 #; Lymphocytes # 0.7 10*3/uL (1.4-4.0); Lymphocytes % 12.6 % (21.2-54.2); Mean Corpuscular Volume 74.6 FL (87-102); Monocytes # 1.3 10*3/uL (0.11-0.8); Monocytes % 21.8 % (1.7-12.7); Neutrophils % 63.1 % (38.7-73.9); Platelet Count 235 T/CUMM (130-400); Red Blood Count 4.14 MC/CUMM (3.8-5.5); Red Cell Distribution Width 15.9 % (9.3-17.3); White Blood Count 5.7 T/CUMM (4-12)
[2021-12-07] MEDS: LACTATED RINGERS 1,000 ML IV SCH ×2 (04:54→21:50)
[2021-12-07 05:01] LABS: INR 1.1; PT Patient Result 12.3 SECS (10.5-12.0)
[2021-12-07 05:13] LABS: Calcium 9.7 MG/DL (8.5-10.1); Osmolality,Calculated 268.4 MOS/KG (273-304); Potassium 3.8 MMOL/L (3.5-5.1)
[2021-12-07 05:14] LABS: Hypochromia Slight; Lymphocytes 11 % (20-55); Microcytosis Slight; Platelet Estimate Adequate; Total Cells Counted 100
[2021-12-07] MEDS: INSULIN LISPRO 100 UNIT/ML SUBCUT SCH ×4 (08:52→20:37)
[2021-12-07] MEDS: MEGESTROL 400 MG/10 ML UDCUP PO SCH (09:05)
[2021-12-07] MEDS: PANTOPRAZOLE 40 MG TABLET PO SCH ×2 (09:05→21:49)
[2021-12-07] MEDS: DOCUSATE SODIUM 100 MG CAPSULE PO SCH ×2 (09:05→21:49)
[2021-12-07] MEDS: GABAPENTIN 100 MG CAPSULE PO SCH ×2 (09:05→21:50)
[2021-12-07] MEDS: TAMSULOSIN 0.4 MG CAPSULE PO SCH (21:49)
[2021-12-07] MEDS: PARoxetine 20 MG TABLET PO SCH (21:49)
[2021-12-07] MEDS: amLODIPine 10 MG TABLET PO SCH (21:50)
[2021-12-08] MEDS: LACTATED RINGERS 1,000 ML IV SCH (04:00)
[2021-12-08 04:40] LABS: Basophils % 0.1 % (0.0-0.8); Eosinophils # 0.1 10*3/uL (0.0-0.87); Hematocrit 32.1 VOL% (42.0-52.0); Hemoglobin 10.6 GM/DL (14.0-18.0); Immature Granulocytes % 1.1 %; Immature Granulocytes Absolute 0.09 #; Lymphocytes # 0.8 10*3/uL (1.4-4.0); Lymphocytes % 9.8 % (21.2-54.2); Mean Corpuscular Volume 75.5 FL (87-102); Monocytes % 13.1 % (1.7-12.7); Neutrophils % 74.9 % (38.7-73.9); Platelet Count 262 T/CUMM (130-400); Red Blood Count 4.25 MC/CUMM (3.8-5.5); Red Cell Distribution Width 16.1 % (9.3-17.3); White Blood Count 7.8 T/CUMM (4-12)
[2021-12-08 05:04] LABS: Albumin 2.2 G/DL (3.4-5.0); Bilirubin,Total 1.1 MG/DL (0.20-1.00); Calcium 9.3 MG/DL (8.5-10.1); Osmolality,Calculated 273.1 MOS/KG (273-304); Potassium 3.7 MMOL/L (3.5-5.1)
[2021-12-08] MEDS: INSULIN LISPRO 100 UNIT/ML SUBCUT SCH ×2 (09:09→11:55)
[2021-12-08] MEDS: DOCUSATE SODIUM 100 MG CAPSULE PO SCH (09:14)
[2021-12-08] MEDS: MEGESTROL 400 MG/10 ML UDCUP PO SCH (09:14)
[2021-12-08] MEDS: PANTOPRAZOLE 40 MG TABLET PO SCH (09:15)
[2021-12-08] MEDS: GABAPENTIN 100 MG CAPSULE PO SCH (09:15)
[2021-12-08 12:04] VITALS: BP 122/70
== END 2021-12-08 12:46 | disposition hospice, home (50) ==
LOC: N.EDINP 14:14 → N.ED 14:14 → N.EDINP 21:16 → N.TELES 21:23
PROVIDERS: ADMIT Internal Medicine; ATTEND Internal Medicine